=== PATIENT | female | born 1955 | race African-American/Black ===

== ENCOUNTER 2021-08-19 10:41 | Emergency (ER) | payer OTHER ==
[2021-08-19] VITALS (8 sets, daily range): BP systolic 111–127; BP diastolic 77–89
[~2021-08-19] VITALS: Ht 165.1 cm; Wt 90.0 kg
[2021-08-19 11:22] LABS: URINE BILIRUBIN - DIPSTICK NEGATIVE (NEGATIVE); URINE BLOOD DIPSTICK NEGATIVE (NEGATIVE); URINE COLOR YELLOW; URINE GLUCOSE - DIPSTICK NEGATIVE (NEGATIVE); URINE KETONE NEGATIVE (NEGATIVE); URINE LEUK ESTERASE NEGATIVE (NEGATIVE); URINE PH 5.5 (4.5-8.0); URINE PROTEIN - DIPSTICK NEGATIVE (NEG-TRACE); URINE SPECIFIC GRAVITY >=1.030; URINE UROBILINOGEN - DIPSTICK 0.2 E.U./dL (0.2)
[2021-08-19 11:40] LABS: URINE NITRITE - DIPSTICK NEGATIVE (Negative)
[2021-08-19] MEDS ORDERED: TESSALON PERLE100 MG PO (11:51)
[2021-08-19] MEDS ORDERED: ZPAK PO (11:51)
== END 2021-08-19 12:33 | disposition home or self-care (01) | DRG 153 ==
LOC: ED 10:41
DX: J06.9 Acute upper respiratory infection, unspecified (principal)